=== PATIENT | male | born 1980 | race Caucasian/White ===

== ENCOUNTER 2024-02-14 06:50 | Emergency (ER) | payer BC ==
[~2024-02-14] VITALS: Ht 175.3 cm; Wt 126.1 kg
[~2024-02-14 06:50] MED LIST: APIX5TAB PO; ATOR40TA71 PO; LISI10TA24 PO; METO25TA3 PO
[2024-02-14] MEDS ORDERED: [UNRECOGNIZED DRUG - OTHER] IV PRN (07:00)
[2024-02-14] MEDS ORDERED: DILTIAZEM IV PRN (07:00)
[2024-02-14 07:12] LABS: BASOPHILS # (AUTO) 0.05 K/uL (0.00-0.20); BASOPHILS % (AUTO) 0.5 % (0.0-5.0); EOSINOPHILS # (AUTO) 0.13 K/uL (0.00-0.70); EOSINOPHILS % (AUTO) 1.3 % (0.0-8.0); HEMATOCRIT 46.4 % (42-54); IMMATURE GRANULOCYTE ABSOLUTE 0.02 K/uL (0-1); LYMPHOCYTES # (AUTO) 2.5 K/uL (1.0-4.8); LYMPHOCYTES % (AUTO) 24.5 % (21.0-51.0); MEAN CORPUSCULAR HEMOGLOBIN 32.2 pg (27.0-33.0); MEAN CORPUSCULAR HGB CONC 34.7 g/dL (32.0-36.0); MEAN CORPUSCULAR VOLUME 92.8 fL (79-99); MONOCYTES # (AUTO) 0.7 K/uL (0.1-1.0); MONOCYTES % (AUTO) 7.1 % (3.0-13.0); NEUTROPHILS # (AUTO) 6.9 K/uL (1.8-7.7); NEUTROPHILS % (AUTO) 66.4 % (40.0-77.0); PLATELET COUNT (AUTO) 215 K/uL (130-400); RED CELL DISTRIBUTION WIDTH 12.5 % (11.0-15.5); WHITE BLOOD COUNT (AUTO) 10.3 K/uL (4.8-10.8)
[2024-02-14] MEDS: DILTIAZEM 25MG INJ IVP PRN (07:17)
[2024-02-14 07:26] LABS: ALBUMIN 3.5 g/dL (3.5-5.0); BILIRUBIN,TOTAL 0.7 mg/dL (0.2-1.0); POTASSIUM 4.2 mmol/L (3.5-5.1); TOTAL PROTEIN, SERUM 7.3 g/dL (6.0-8.3)
[2024-02-14 08:03] LABS: B-TYPE NATRIURETIC PEPTIDE 429 pg/mL (0-100)
[2024-02-14 08:15] VITALS: BP 115/81; PULSE 84; RESP 20; O2SAT 97
[2024-02-14] MEDS ORDERED: FURO20TA6 PO (09:23)
[2024-02-14] MEDS: FUROSEMIDE 20MG VIAL IV ONE (09:26)
== END 2024-02-14 10:01 | disposition home or self-care (01) ==
LOC: EDH 06:50
DX: I48.91 Unspecified atrial fibrillation (principal); I10 Essential (primary) hypertension; E78.00 Pure hypercholesterolemia, unspecified; Z79.899 Other long term (current) drug therapy
CPT/HCPCS: 99284; 96374; 71045; 96375; 84484; 80053; 83880; 85025; 36415; 93005 ×2; J3490; J1940

== ENCOUNTER → 2024-03-23 | Outpatient (CLI) | payer BC ==
[~2024-03-23] MED LIST changes: +FURO20TA6 PO
[2024-03-23 12:54] LABS: CREATININE 1.2 mg/dL (0.5-1.3); MAGNESIUM 2.2 mg/dL (1.80-2.40); POTASSIUM 4.9 mmol/L (3.5-5.1)
== END | disposition home or self-care (01) ==
LOC: LAB 08:57
PROVIDERS: ATTEND Internal Medicine Cardiovascular Disease
DX: I47.29 Other ventricular tachycardia (principal)
CPT/HCPCS: 36415; 80048; 83735

== ENCOUNTER 2024-07-20 07:52 | Day surgery (SDC) | payer BC ==
[2024-07-18 11:36] VITALS: BP 132/97; PULSE 95; RESP 19; TEMP 97.3
[2024-07-18 11:47] LABS: BASOPHILS # (AUTO) 0.05 K/uL (0.00-0.20); BASOPHILS % (AUTO) 0.6 % (0.0-5.0); EOSINOPHILS # (AUTO) 0.09 K/uL (0.00-0.70); HEMATOCRIT 47.9 % (42-54); IMMATURE GRANULOCYTE ABSOLUTE 0.03 K/uL (0-1); LYMPHOCYTES # (AUTO) 2.2 K/uL (1.0-4.8); LYMPHOCYTES % (AUTO) 25.1 % (21.0-51.0); MEAN CORPUSCULAR HEMOGLOBIN 31.8 pg (27.0-33.0); MEAN CORPUSCULAR HGB CONC 34.2 g/dL (32.0-36.0); MEAN CORPUSCULAR VOLUME 92.8 fL (79-99); MONOCYTES # (AUTO) 0.7 K/uL (0.1-1.0); MONOCYTES % (AUTO) 7.6 % (3.0-13.0); NEUTROPHILS # (AUTO) 5.8 K/uL (1.8-7.7); NEUTROPHILS % (AUTO) 65.4 % (40.0-77.0); PLATELET COUNT (AUTO) 225 K/uL (130-400); RED BLOOD CELL COUNT(AUTO) 5.16 MIL/uL (4.50-6.20); RED CELL DISTRIBUTION WIDTH 13.1 % (11.0-15.5); WHITE BLOOD COUNT (AUTO) 8.9 K/uL (4.8-10.8)
[2024-07-18 11:54] LABS: POTASSIUM 4.2 mmol/L (3.5-5.1)
[~2024-07-20] VITALS: Ht 175.3 cm; Wt 124.6 kg
[2024-07-20] VITALS (10 sets, daily range): BP systolic 134–157; BP diastolic 70–103; PULSE 40–63; RESP 12–18; TEMP 97.5–98.3
[~2024-07-20 07:52] MED LIST changes: +AMIO200T68 PO; -FURO20TA6 PO; +METO-391 PO; +METO-409 PO; -METO25TA3 PO
[2024-07-20] MEDS ORDERED: proPOFol 10 MG/ML 20ML VIAL IV ONE (09:53)
[2024-07-20] MEDS ORDERED: phenylEPHRINE HCL 10 MG/ML 1ML VIAL IV ONE (09:54)
[2024-07-20] MEDS: 0.9%NACL 1000ML 1,000 ML IV ONE (09:55)
[2024-07-20] MEDS ORDERED: ATROPINE 0.4MG VIAL IJ ONE (09:56)
[2024-07-20] MEDS ORDERED: SUCCINYLCHOLINE CHLORIDE 20 MG/ML 10 ML VIAL ONE (10:01)
== END 2024-07-20 12:20 | disposition home or self-care (01) ==
LOC: DAH 07:52
PROVIDERS: ATTEND Internal Medicine Cardiovascular Disease
DX: I48.19 Other persistent atrial fibrillation (principal); I10 Essential (primary) hypertension; Z79.01 Long term (current) use of anticoagulants; Z79.899 Other long term (current) drug therapy
CPT/HCPCS: 80048; 85025; 36415; 92960; 93005 ×2; J0330; J7030; J0461; J2704; J2371; A4620; A4215; A4222; A4221; A4663; A4216; A4606; A4223 ×3; J3490

== ENCOUNTER 2024-08-31 06:04 | Day surgery (SDC) | payer BC ==
[2024-08-24 10:29] LABS: BASOPHILS # (AUTO) 0.03 K/uL (0.00-0.20); BASOPHILS % (AUTO) 0.4 % (0.0-5.0); EOSINOPHILS # (AUTO) 0.04 K/uL (0.00-0.70); EOSINOPHILS % (AUTO) 0.6 % (0.0-8.0); IMMATURE GRANULOCYTE ABSOLUTE 0.03 K/uL (0-1); LYMPHOCYTES # (AUTO) 1.8 K/uL (1.0-4.8); MEAN CORPUSCULAR HEMOGLOBIN 32.3 pg (27.0-33.0); MEAN CORPUSCULAR HGB CONC 34.6 g/dL (32.0-36.0); MEAN CORPUSCULAR VOLUME 93.3 fL (79-99); MONOCYTES # (AUTO) 0.7 K/uL (0.1-1.0); MONOCYTES % (AUTO) 9.3 % (3.0-13.0); NEUTROPHILS # (AUTO) 4.5 K/uL (1.8-7.7); NEUTROPHILS % (AUTO) 63.3 % (40.0-77.0); PLATELET COUNT (AUTO) 175 K/uL (130-400); RED BLOOD CELL COUNT(AUTO) 4.93 MIL/uL (4.50-6.20); RED CELL DISTRIBUTION WIDTH 12.3 % (11.0-15.5); WHITE BLOOD COUNT (AUTO) 7.1 K/uL (4.8-10.8)
[2024-08-24 10:30] VITALS: BP 160/70; PULSE 45; RESP 19; TEMP 97.9
[2024-08-24 10:35] LABS: POTASSIUM 4.7 mmol/L (3.5-5.1)
[2024-08-24 10:42] LABS: INR 0.99 (0.85-1.15); PROTHROMBIN TIME 10.7 SEC (9.6-11.6)
[2024-08-24 10:43] LABS: PARTIAL THROMBOPLASTIN TIME 29.3 SEC (26.3-35.5)
--- NOTE | 2024-08-24 10:53 | EKG ---
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
[2024-08-31] VITALS (19 sets, daily range): BP systolic 132–148; BP diastolic 71–85; PULSE 43–84; RESP 14–18; TEMP 97–98.1
[~2024-08-31] VITALS: Ht 175.3 cm; Wt 126.2 kg
[~2024-08-31 06:04] MED LIST changes: -METO-391 PO
[2024-08-31] MEDS ORDERED: SUGAMMADEX SODIUM 200 MG/2 ML VIAL IV ONE (06:46)
[2024-08-31] MEDS ORDERED: FAMOTIDINE 20MG VIAL IV ONE (06:46)
[2024-08-31] MEDS: 0.9%NACL 1000ML 1,000 ML IV ONE (07:03)
[2024-08-31] MEDS ORDERED: HEParin 10,000 UNIT/10ML (1,000 UNIT/ML) VIAL ONE ×2 (08:26→09:38)
[2024-08-31] MEDS ORDERED: HEParin-NS 1,000 UNIT/500 ML 1,000 ML IV ONE (08:26)
[2024-08-31] MEDS ORDERED: LIDOCAINE HCL 1% MDV 50ML VIAL ONE (08:26)
[2024-08-31] MEDS ORDERED: HEParin-NS 1,000 UNIT/500 ML 500 ML IV ONE (08:26)
[2024-08-31] MEDS ORDERED: PROTamine SULFate 10 MG/ML 25ML VIAL IV ONE (12:00)
[2024-08-31] MEDS ORDERED: SUCR1TAB2 PO (12:42)
[2024-08-31] MEDS ORDERED: PANT40TA55 PO (12:42)
[2024-08-31] MEDS ORDERED: SUCRALFATE 1 GM/10 ML PO ONE (13:00)
[2024-08-31] MEDS ORDERED: PANTOPrazole 40 MG TAB DR PO ONE (13:00)
== END 2024-08-31 15:45 | disposition home or self-care (01) ==
LOC: DAH 06:04
PROVIDERS: ATTEND Internal Medicine Cardiovascular Disease
DX: I48.19 Other persistent atrial fibrillation (principal); I10 Essential (primary) hypertension; Z79.01 Long term (current) use of anticoagulants; Z79.899 Other long term (current) drug therapy; Z98.890 Other specified postprocedural states
CPT/HCPCS: 80048; 85025; 85610; 85730; 36415; 93005; 93656; 93657; C1894 ×3; C1732 ×3; C1893; A4215 ×2; A4649 ×2; C1760 ×3; C1766; J3490 ×2; J7030; J1644 ×4; A4222; A4221; A4663; A4216; A4606; J2720; A4223 ×3

== ENCOUNTER 2024-11-02 11:44 | Emergency (ER) | payer BC ==
[~2024-11-02] VITALS: Ht 175.3 cm; Wt 127.0 kg
[~2024-11-02 11:44] MED LIST changes: -AMIO200T68 PO; +PANT40TA55 PO; +SUCR1TAB2 PO
--- NOTE | 2024-11-02 12:21 | HMCIMG ---
LUMBAR SPINE 2-3VWS HISTORY: Back pain COMPARISON: None FINDINGS: 3 images of lumbar spine were obtained. Anterior osteophytes are seen. There are bilateral L5 pars defects. There is straightening of normal lordotic curvature which may be related to muscle spasm or positioning. No loss of vertebral height is seen. No fracture or dislocation is seen. Degenerative changes are seen. IMPRESSION: 1. Findings as described above.
[2024-11-02] MEDS: TRIAMCINOLONE ACETONIDE 40 MG/ML 1ML VIAL IM ONE (12:23)
[2024-11-02] MEDS: ORPHENADRINE 60MG/2ML IVP ONE (12:24)
[2024-11-02] MEDS: ketOROlac 30MG VIAL (30MG/ML) IM ONE (12:36)
[2024-11-02] MEDS ORDERED: LIDOP TP (12:52)
[2024-11-02] MEDS ORDERED: METH-662 PO (12:52)
--- NOTE | 2024-11-02 12:54 | ERN ---
General Chief Complaint: Lower Extremity Pain/Injury Stated Complaint: 4 Time Seen by MD: 11:46 Source: patient History of Present Illness Initial Comments This is a 44-year-old male coming in to be evaluated for lower back pain . Patient states this back pain has been ongoing for two weeks. He states he was playing golf and in one of the swings pulled his lower back muscles. Patient was having a chiropractor adjustment this morning and started having increased back pain with back spasms. Allergies: Coded Allergies: No Known Drug Allergies (Unverified Allergy, Unknown, 01/11/24) Home Meds Active Scripts Sucralfate (Sucralfate) 1 Gram Tablet, 1 TAB PO QID, #60 TAB 0 Refills MUST DISSOLVE IN WATER; DO NOT CRUSH Prov:LAYLA BATES MD 08/31/24 Pantoprazole Sodium (Protonix) 40 Mg Ectab, 1 TAB PO DAILY, #15 TAB 0 Refills Prov:LAYLA BATES MD 08/31/24 Atorvastatin Calcium (Atorvastatin Calcium) 40 Mg Tablet, 40 MG PO DAILY, #30 TAB 1 Refill Prov:JHONNY LEMUS MD 01/13/24 Lisinopril (Lisinopril) 10 Mg Tablet, 10 MG PO DAILY, #30 TAB 1 Refill Prov:JHONNY LEMUS MD 01/13/24 Apixaban (Eliquis) 5 Mg Tablet, 5 MG PO BID, #60 TAB 1 Refill Prov:JHONNY LEMUS MD 01/13/24 Reported Medications Metoprolol Succinate (Metoprolol Succinate) 100 Mg Tab.er.24h, 50 MG PO AM, TAB 04/10/24 Past Medical History Past Medical History: A-Fib, High Cholesterol, Hypertension Past Surgical History: Unknown Social History Social History: ETOH ROS Dictation CONSTITUTIONAL: No chills, no fever, no weakness, no diaphoresis, no malaise. HEAD/FACE: No signs of trauma. EENT: No eye pain, no blurred vision, no tearing, no double vision, no ear pain, no ear discharge, no nose pain, no nasal congestion, no throat pain, no throat swelling, no mouth pain. RESPIRATORY: No cough, no orthopnea, no SOB, no stridor, no wheezing. CARDIOVASCULAR: No chest pain, no edema, no palpitations, no syncope. GASTROINTESTINAL/ABDOMINAL: No abdominal pain, no constipation, no diarrhea, no nausea, no vomiting. GENITOURINARY: No abnormal discharge, no dysuria, no frequent urination, no hematuria. No complaints of pain in the genitals. MUSCULOSKELETAL: back pain, no gout, no joint pain, no joint swelling, no muscle pain, no muscle stiffness, no neck pain. INTEGUMENTARY: No change in color, no change in hair/nails, no dryness, no lesion, no lumps, no rash. NEUROLOGICAL/PSYCH: No anxiety, not depressed, no emotional problem, no headache, no numbness, no pre-existing deficit, no history of seizures, no tremors, no weakness. HEMATOLOGIC/LYMPHATIC: Not anemic, no history of blood clots, no apparent bleeding, no bruising, glands not swollen. All Systems Negative, Except as Noted. Physical Exam Physical Exam Dictation VITAL SIGNS: Reviewed. GENERAL APPEARANCE: Alert, oriented x3, no acute distress, obese. HEAD AND FACE: Non-traumatic. EYES: PERRL, pink conjunctivas, eyelid no trauma, anterior chamber clear. EARS: Pinnas intact and no signs of trauma or erythema. Ear canals clear and no discharge. TMs no erythema. NOSE: No discharge, no bleeding. OROPHARYNX: Mouth normal, teeth no caries, tongue pink. Pharynx clear, no erythema. Tonsils no exudates, no abscesses noted. Mucous membrane moist. NECK: Supple, non-tender, no thyromegaly, no masses, no JVD, no bruits. BREAST: Deferred. CHEST: No tenderness, no crepitus, no paradoxical movement, no retractions. LUNGS: Clear, well-ventilated, symmetric, no rales, no wheezing, no rhonchi, no stridor, good breath sounds bilaterally. HEART: Regular rate, regular rhythm, no murmur, no gallops. VASCULAR: No peripheral edema. ABDOMEN: Soft, positive bowel sounds, nondistended, no guarding, nontender, no rebound, no masses no hepatomegaly, no splenomegaly, no Alberts's sign, no hernias. RECTAL: Deferred. GENITAL: Deferred. NEUROLOGICAL: Normal speech, gross motor function intact, gross sensory function intact. MUSCULOSKELETAL: Neck nontender, full range of motion, singer back tender, full range of motion. EXTREMITIES: Nontender, full range of motion. SKIN: Color pink, dry, no turgor, no rash, no lacerations, no abrasions, no contusions. LYMPHATICS: Deferred. Results EKG/XRAY/US/CT/MRI X-RAY Comment IMAGING REPORT Signed PATIENT: TATIANNA RAMOS MR#: [id number] : 1980 SEX: M AGE: 44 LOCATION: [facility] ORDER [id number] STATUS: REG ER REPORT#: [id number] SERVICE [id number] REASON: back pain ORDERING PHYSICIAN: JESSENIA SOARES MD PROCEDURE: LUMB 2 3VW - LUMBAR SPINE 2-3VWS LUMBAR SPINE 2-3VWS HISTORY: Back pain COMPARISON: None FINDINGS: 3 images of lumbar spine were obtained. Anterior osteophytes are seen. There are bilateral L5 pars defects. There is straightening of normal lordotic curvature which may be related to muscle spasm or positioning. No loss of vertebral height is seen. No fracture or dislocation is seen. Degenerative changes are seen. IMPRESSION: 1. Findings as described above. DICTATED BY: NEHAL LANDIS MD DATE: 11/02/241217 ELECTRONICALLY SIGNED BY: NEHAL LANDIS MD DATE: 11/02/24 1221 [facility] MDM: Differential diagnosis: Back spasm, back pain, lumbar strain Patient is a 44-year-old male coming in to be evaluated for back pain. X-ray did not disclose acute findings. Only relative finding was straightening of the back could be related to spasms. Patient will be discharged with a diagnosis of back spasms. ED Course Orders Procedure Category Date Status Time Lumbar Spine 2-3vws RAD 11/02/24 Resulted 11:49 Orphenadrine Citrate PHA 11/02/24 Complete (Norflex) 12:00 Triamcinolone Acet PHA 11/02/24 Complete 40mg/Ml 1ml (Kenalog 12:00 Ketorolac PHA 11/02/24 Complete Tromethamine 30mg/Ml 12:00 Current Medications Medications (Trade) Dose Ordered Sig/Julián Route PRN Reason Start Time Stop Time Status Last Admin Dose Admin Ketorolac Tromethamine (toRADol) 30 mg ONCE ONCE IM 11/02/24 12:00 11/02/24 12:01 DC 11/02/24 12:36 Orphenadrine Citrate (Norflex) 60 mg ONCE ONCE IVP 11/02/24 12:00 11/02/24 12:01 DC 11/02/24 12:24 Triamcinolone Acetonide (Kenalog 40) 40 mg ONCE ONCE IM 11/02/24 12:00 11/02/24 12:01 DC 11/02/24 12:23 Vital Signs Date Time Temp Pulse Resp B/P (MAP) Pulse Ox O2 Delivery O2 Flow Rate FiO2 11/02/24 11:46 97.9 52 16 159/93 98 Room Air 0 DX & DISP Disposition: Discharge Departure Impression: Primary Impression: Back muscle spasm Condition: Stable Scripts Lidocaine (Lidoderm Patch 5%) 5 % Patch 1 PATCH TP DAILY for 7 Days, #7 PATCH 0 Refills may wear up to 12 hours Prov: JESSENIA SOARES MD 11/02/24 Methocarbamol (Robaxin) 750 Mg Tab 1 TAB PO BID for 7 Days, #14 TAB 0 Refills Prov: JESSENIA SOARES MD 11/02/24 Additional Instructions: FOLLOW-UP WITH PRIMARY CARE PROVIDER IN 1 TO 2 DAYS. TAKE MEDICATIONS DIRECTED HERE IN THE EMERGENCY ROOM. OKAY TO CONTINUE HOME MEDICATIONS UNLESS OTHERWISE DISCUSSED DURING YOUR VISIT IN THE EMERGENCY ROOM TODAY. RETURN TO YOUR NEAREST EMERGENCY ROOM IF SYMPTOMS WORSEN OR IF THERE IS NO IMPROVEMENT. CALL 911 IF YOU NEED IMMEDIATE ASSISTANCE. TAKE TYLENOL [id number] NEEDED AND IF NO CONTRAINDICATIONS ARE PRESENT. INCREASE ORAL HYDRATION. A WOUND CULTURE OR URINE CULTURE WAS ORDERED HERE IN THE EMERGENCY ROOM DEPARTMENT PLEASE FOLLOW-UP WITH PRIMARY CARE PROVIDER AND ADVISE THEM TO GET REPEAT PORTS FROM OUR FACILITY. IF YOU HAD ANY PATRICA WRAP/SPLINTS THAT WERE APPLIED HERE, PLEASE DO NOT REMOVE THEM UNTIL YOU SEE YOUR PRIMARY CARE OR SPECIALTY. Referrals: Referrals: JIM BECERRIL MD (PCP) Time of Disposition: 12:49 JESSENIA SOARES MD Nov 02, 2024 12:54
[2024-11-02] MEDS: LIDOCAINE 4% ADH..PATCH TP ONE (13:00)
[2024-11-02 13:10] VITALS: BP 151/87; PULSE 54; RESP 16; TEMP 97.9; O2SAT 99
== END 2024-11-02 13:16 | disposition home or self-care (01) ==
LOC: EDH 11:44
DX: M62.830 Muscle spasm of back (principal); E78.00 Pure hypercholesterolemia, unspecified; I10 Essential (primary) hypertension; I48.91 Unspecified atrial fibrillation; Z79.01 Long term (current) use of anticoagulants; Z79.899 Other long term (current) drug therapy
CPT/HCPCS: 99284; 96374; 72100; 96372 ×2; J1885; J3301; J2360